=== PATIENT | male | born 1940 | race Caucasian/White ===

== ENCOUNTER → 2022-03-15 | Outpatient (CLI) | payer OTHER | LOC: MRI 11:00 | DX: R29.2 Abnormal reflex (principal); R29.898 Other symptoms and signs involving the musculoskeletal system; M47.26 Other spondylosis with radiculopathy, lumbar region; V89.2XXA Person injured in unspecified motor-vehicle accident, traffic, initial encounter | CPT/HCPCS: 72148 ==